=== PATIENT | female | born 1980 | race Caucasian/White ===

== ENCOUNTER 2023-01-23 10:04 | Outpatient (AMB) | payer OTHER, SELFPAY ==
--- NOTE | 2023-01-23 10:17 | A.OFFPC_ITS ---
Vital Signs 01/23/23 10:23 Height 5 ft 4 in Weight 408 lb 6 oz BMI 70.1 BMI Reason not done Patient refused/unable BP 120/78 Blood Pressure Location Rt brachial Position Sitting Pulse 100 Pulse Source Pulse Oximeter Pulse Oximetry (%) 95 Oxygen Delivery Method Room Air Intake Visit Reasons: F/u headaches/nausea Allergies egg Allergy (Unknown, Verified 01/23/23 10:18) Stomach Upset lactose Allergy (Unknown, Verified 01/23/23 10:18) nausea and vomiting Medication List - Last Reconciled 01/23/23 by Yara Peña MD bupropion HCl 150 mg PO DAILY trazodone 50 mg PO BEDTIME PRN Dental Screening Dental Screen Date: 01/23/23 Did you have a dental visit in the last 12 months?: No Did you have a dental problem in the last 6 months where you did not have access to dental care?: No Was dental information given to patient?: No HPI HPI Comments History of Present Illness Details pt presents for PE. She went to ER 1 month ago with c/o abd pain related to menses. Work up including CT abd/pelvic and labs were normal. Pt would like to see health evaluator. Pt f/u with psychiatrist and therapist for depression and anxiety [facility] Medical History (Updated 01/23/23 @ 21:15 by Yara Peña MD) Annual physical exam Surgical History No pertinent past surgical history Family History Father Unknown family medical history Stroke Myocardial infarction Mother No problems noted. Brother No problems noted. Brother No problems noted. Social History Housing: Apartment Patient Tobacco Use Status: Never used Tobacco e-Cigarette/Vaping Use: Never Used service: No Cognitive needs: No Hearing needs: No Vision needs: No Questionnaire PHQ-9 Over the last 2 weeks, how often have you been bothered by any of the following problems? 1. Little interest or pleasure in doing things: more than half the days 2. Feeling down, depressed, or hopeless: more than half the days 3. Trouble falling or staying asleep, or sleeping too much: not at all 4. Feeling tired or having little energy: nearly every day 5. Poor appetite or overeating: nearly every day 6. Feeling bad about yourself - or that you are a failure or have let yourself or your family down: more than half the days 7. Trouble concentrating on things, such as reading the newspaper or watching television: several days 8. Moving or speaking so slowly that other people could have noticed. Or the opposite - being so fidgety or restless that you have been moving around a lot more than usual: several days 9. Thoughts that you would be better off or of hurting yourself in some way: more than half the days Total score: 16 Depression Screening Interpretation: Positive 54853 - PHQ-9 Billing: Yes Source: Developed by Drs. Rasheed Sarabia, Stefani Gaona, Cleve [address] and colleagues, with an educational nahid from [employer]. Thrive Questionnaire Date Thrive assessed: 01/23/23 I am a: Patient What is your living situation today?: I have a steady place to live Within the past 12 months, did the food you bought not last and you didn't have the money to get more?: Often true Within the past 12 months, did you worry whether your food would run out before you got money to buy more?: Often true Do you have trouble paying for medicines?: No Do you have trouble getting transportation to medical appointments?: No Do you have trouble paying your heating and electricity bill?: No Do you have trouble taking care of your child, family member or friend?: No Do you have trouble with day-to-day activities such as bathing, preparing meals, shopping, managing finances, etc.?: No Are you currently unemployed and looking for a job?: No Are you interested in more education?: No Please select the resources that you would like help with: Transportation AUDIT C Alcohol Use Questionnaire (AUDIT-C) 1. How often do you have a drink containing alcohol?: Never 3. How often do you have six or more drinks on one occasion?: Never Total Score: 0 Score Reviewed/Action Taken: Yes LEONARDO-7 AMB Questionnaire LEONARDO-7 Date LEONARDO - 7 assessed: 01/23/23 Feeling nervous, anxious, or on edge: 2 = More than half the days Not being able to stop or control worryin = Several days Worrying too much about different things: 2 = More than half the days Trouble relaxin = More than half the days Being so restless that it is hard to sit still: 1 = Several days Becoming easily annoyed or irritable: 3 = Nearly every day Feeling afraid as if something awful might happen: 2 = More than half the days Total LEONARDO-7 score (0-4 normal; 5-9 mild; 10-14 moderate; 15-21 severe): 13 Source: Developed by Drs. Rasheed Sarabia, Stefani Gaona, [address]ve [address] and colleagues, with an educational nahdi from [employer]. LEONARDO-7 Assessment Billing LEONARDO-7 Assessment Tool: LEONARDO-7 Assessment 03160 Review of Systems Const All systems reviewed & are unremarkable except as noted in HPI and below Reports no additional complaints Eyes Reports no additional complaints ENT Reports no additional complaints Card Reports no additional complaints Resp Reports no additional complaints GI Reports no additional complaints Reports no additional complaints Physical exam (Primary Care) Vital Signs: Last Vital Signs Pulse 100 01/23/23 10:23 Pulse Ox 95 01/23/23 10:23 Oxygen Delivery Method Room Air 01/23/23 10:23 BMI result Body Mass Index 70.1 Tobacco/Smoking Status: Tobacco use Status Patient Tobacco Use Status Never used Tobacco 01/23/23 10:26 e-Cigarette/Vaping Use Never Used 01/23/23 10:26 PHQ-9: PHQ-9 Score PHQ-9: Total score 16 01/23/23 10:41 Depression Screening Interpretation: Positive Thrive Assessment: Date of Thrive Assessment Date Thrive assessed 01/23/23 01/23/23 10:41 Const General: no acute distress HENMT Head: Yes normal to inspection Ears: hearing grossly normal bilaterally Neck Neck: Yes no lymphadenopathy and Yes supple Resp Effort & Inspection: normal respiratory effort Auscultation: clear to auscultation bilaterally Cardio Rhythm: regular rhythm Heart sounds: S1 normal heart sound present and S2 normal heart sound present GI Inspection: Yes normal to inspection Palpation (GI): Soft to palpation Percussion: Yes normal to percussion Assessment and Plan Assessment & Plan (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 (5) Dysmenorrhea: Code(s): N94.6 - Dysmenorrhea, unspecified Plan: refer to health evaluator Orders: Orders Lipid Panel Today E66.01 - Morbid (severe) obesity due to excess calories, Z00.00 - Encounter for general adult medical examination without abnormal findings TSH reflex Free T4 Today E66.01 - Morbid (severe) obesity due to excess calories, Z00.00 - Encounter for general adult medical examination without abnormal findings Referrals PROFESSOR OF GENETICS Referral N94.6 - Dysmenorrhea, unspecified Coding Level of Care Code Est Pt Prev Care 40-64y(56584) Diagnoses Aerophobia F40.228 Anxiety F41.9 Morbid obesity E66.01 Annual physical exam Z00.00 Dysmenorrhea N94.6 Additional Codes LEONARDO-7 Assessment Billing - LEONARDO-7 Assessment Tool: LEONARDO-7 Assessment 85331 ([id number])
[2023-01-23 10:23] VITALS: BP 120/78; PULSE 100; O2SAT 95; BMI 70.1
== END 2023-01-23 13:42 | disposition home or self-care (01) ==
PROVIDERS: PCP Internal Medicine; Visit Provider Internal Medicine
DX: Z00.00 Encounter for general adult medical examination without abnormal findings (principal); E66.01 Morbid (severe) obesity due to excess calories; F41.9 Anxiety disorder, unspecified; Z68.45 Body mass index [BMI] 70 or greater, adult; F40.228 Other natural environment type phobia; N94.6 Dysmenorrhea, unspecified
CPT/HCPCS: 99396

== ENCOUNTER 2023-04-30 08:14 | Outpatient (REF) | payer OTHER, SELFPAY ==
[2023-04-30 11:21] LABS: MANUAL DIFF FLAG NO
[2023-04-30 11:30] LABS: Basophils Absolute Auto 0.1 X10*3/uL (0.0-0.2); Basophils Percent Auto 1.2 % (0-2); Eosinophils Absolute Auto 0.2 X10*3/uL (0.0-0.4); Eosinophils Percent Auto 2.2 % (0-4); Hematocrit 46.7 % (37.0-47.0); Hemoglobin 14.9 g/dl (12.0-16.0); Imm Gran Abs Auto 0.02 X10*3/uL (0.00-0.03); Imm Gran Pct Auto 0.3 % (0.0-0.4); Lymphocytes Absolute Auto 1.8 X10*3/uL (1.2-4.9); Lymphocytes Percent Auto 27.1 % (20-40); Mean Corpuscular HGB Conc 31.9 g/dl (31.0-35.0); Mean Corpuscular Hemoglobin 31.8 pg (27.0-33.0); Mean Corpuscular Volume 99.6 fL (80.0-98.0); Mean Platelet Volume 11.9 fL (9.4-12.3); Monocytes Absolute Auto 0.5 X10*3/uL (0.1-1.2); Monocytes Percent Auto 7.1 % (2-11); Neutrophils Absolute Auto 4.2 x10*3/uL (2.0-8.3); Neutrophils Percent Auto 62.1 % (45-73); Platelet Count 292 X10*3/uL (160-400); Red Blood Count 4.69 X10*6/uL (4.20-5.50); Red Cell Distribution Width 12.3 % (11.0-16.0); White Blood Count 6.8 X10*3/uL (4.8-10.8)
[2023-04-30 12:00] LABS: Alanine Aminotransferase 32 U/L (0-31); Albumin Level 4.2 g/dL (3.5-5.0); Alkaline Phosphatase 86 U/L (39-117); Anion Gap 14 (12-20); Aspartate Amino Transferase 28 U/L (5-31); Bilirubin Direct 0.4 mg/dL (0.0-0.5); Blood Urea Nitrogen 13 mg/dL (9-16); Calcium 9.8 mg/dL (8.4-10.2); Carbon Dioxide 29 mmol/L (22-29); Chloride 101 mmol/L (96-108); Estimated Glomerular Filt Rate 55; Glucose Random 109 mg/dL (60-115); Potassium 4.2 mmol/L (3.3-5.1); Sodium 140 mmol/L (135-145); Total Protein 8.4 g/dL (6.5-8.0)
[2023-04-30 12:03] LABS: Cholesterol 164 mg/dL (<200); HDL Cholesterol 53 mg/dL (>40); LDL Cholesterol Calculated 91 mg/dL (<100); TSH reflex Free T4 3.86 uIU/mL (0.32-4.0); Triglycerides 103 mg/dL (<150)
[2023-05-05 11:59] LABS: Vitamin D 25-OH, D2 <4 ng/mL; Vitamin D 25-OH, D3 25 ng/mL; Vitamin D 25-OH, Total 25 ng/mL (30-100)
== END 2023-04-30 08:15 | disposition home or self-care (01) ==
LOC: HO.HMGCLDS 08:14
PROVIDERS: Clinical Nurse Specialist Psychiatric/Mental Health, Adult; PCP Internal Medicine; Visit Provider Internal Medicine
DX: Z00.00 Encounter for general adult medical examination without abnormal findings (principal); E66.01 Morbid (severe) obesity due to excess calories; Z79.899 Other long term (current) drug therapy
CPT/HCPCS: 36415; 80053; 80061; 82248; 82306; 84443; 85025

== ENCOUNTER 2025-02-08 09:10 | Outpatient (REF) | payer OTHER, SELFPAY ==
[2025-02-08 13:04] LABS: MANUAL DIFF FLAG NO
[2025-02-08 13:30] LABS: Hematocrit 45.0 % (37.0-47.0); Hemoglobin 14.6 g/dl (12.0-16.0); Imm Gran Abs Auto 0.02 X10*3/uL (0.00-0.03); Imm Gran Pct Auto 0.3 % (0.0-0.4); Lymphocytes Absolute Auto 1.6 X10*3/uL (1.2-4.9); Mean Corpuscular HGB Conc 32.4 g/dl (31.0-35.0); Mean Corpuscular Hemoglobin 32.4 pg (27.0-33.0); Mean Corpuscular Volume 99.8 fL (80.0-98.0); NRBC Abs Auto 0.000 X10*3/uL (0.0-0.012); NRBC Pct Auto 0.0 /100WBC (0.0-0.2); Platelet Count 257 X10*3/uL (160-400); Red Blood Count 4.51 X10*6/uL (4.20-5.50); White Blood Count 6.2 X10*3/uL (4.8-10.8)
[2025-02-08 13:52] LABS: Alanine Aminotransferase 40 U/L (0-31); Albumin Level 4.3 g/dL (3.5-5.0); Alkaline Phosphatase 101 U/L (39-117); Anion Gap 13 (12-20); Aspartate Amino Transferase 38 U/L (5-31); Blood Urea Nitrogen 13 mg/dL (9-16); Calcium 9.2 mg/dL (8.4-10.2); Carbon Dioxide 29 mmol/L (22-29); Chloride 101 mmol/L (96-108); Estimated Glomerular Filt Rate 56; Potassium 3.9 mmol/L (3.3-5.1); Sodium 139 mmol/L (135-145); Total Protein 8.0 g/dL (6.5-8.0)
[2025-02-08 14:12] LABS: Thyroid Stimulating Hormone 2.91 uIU/mL (0.32-4.0)
== END 2025-02-08 09:11 | disposition home or self-care (01) ==
LOC: HO.HMGCLDS 09:10
PROVIDERS: PCP Internal Medicine; Visit Provider Clinical Nurse Specialist Psychiatric/Mental Health, Adult
DX: Z79.899 Other long term (current) drug therapy (principal)
CPT/HCPCS: 36415; 80053; 82248; 82306; 84443; 85025

== ENCOUNTER 2025-04-24 16:34 | Emergency (ER) | payer OTHER, SELFPAY ==
[2025-04-24 16:43] VITALS: BP 149/121; PULSE 77; RESP 26; TEMP 36.7; O2SAT 95; BMI 76.1
--- NOTE | 2025-04-24 16:49 | ED.GENADULT ---
HPI - General Adult General Chief complaint: Anxiety Stated complaint: light headed, severe anxiety Time Seen by Provider: 04/24/25 16:49 History of Present Illness ED Provider: Daniel LICEA narrative: The patient is a 45-year-old woman with a history of severe agoraphobia who comes to the hospital by ambulance because she has been feeling lightheaded and anxious ever since events during the previous week. She lives in an apartment with her . She has not left the apartment in 2 years. Apparently some plumbing maintenance needed to be done this week and therefore the patient could not use her own bathroom for a few days during the middle of the week. There was a bathroom available in the neighboring building for the patient to use but because of her agoraphobia she did not feel she will be able to use it. She therefore ate and drank little or nothing for a couple of days to avoid having significant urine and stool output. She used a bucket during this time. The bathroom situation has now been fixed but the patient has a felt very lightheaded ever since she stopped eating and drinking. She has been able to take some liquids but has not been taking much in the way of solid foods. She has been having some nausea but she thinks that mostly she just is feeling a lack of appetite because of the profound degree of anxiety she experienced as a result of the events of the week. The patient has a primary care doctor but has not seen her primary care doctor in a couple of years. The patient has been receiving psychiatric medications through and but she has recently been weaning herself off all of her psychiatric medications and hopes to avoid going back on any psychiatric medications. I offered the patient has some lorazepam but she said that she has a history of addiction does not wish to take anything that is addictive. Related Data Home Medications ?Medication ?Instructions ?Recorded ?Confirmed trazodone 50 mg tablet 50 mg PO BEDTIME PRN 01/23/23 01/23/23 Previous Rx's ?Medication ?Instructions ?Recorded meclizine 25 mg tablet 25 mg PO BID PRN dizziness 5 days 04/24/25 #10 tabs Allergies Allergy/AdvReac Type Severity Reaction Status Date / Time egg Allergy Unknown Stomach Verified 01/23/23 10:18 Upset lactose Allergy Unknown nausea and Verified 01/23/23 10:18 vomiting hydroxyzine AdvReac Agitated Verified 04/24/25 16:44 Review of Systems Review of Systems: Yes all other systems are reviewed and are negative [facility] [place] Past Medical History Medical History Annual physical exam Surgical History No pertinent past surgical history Family History Family History Father Unknown family medical history Stroke Myocardial infarction Mother No problems noted. Brother No problems noted. Brother No problems noted. Social History Social History Housing: Apartment Patient Tobacco Use Status: Never used Tobacco e-Cigarette/Vaping Use: Never Used Advance Directives: No Advance Directives Information Provided: Yes Do you have a plan to hurt others: No Plan Patient : No service: No Cognitive needs: No Hearing needs: No Vision needs: No Physical Exam ED Vital Signs: Vital Signs - 24 hr 04/24/25 16:43 04/24/25 20:03 04/24/25 20:54 Temperature 98.0 F 97.6 F 97.6 F Pulse Rate 77 62 62 Respiratory Rate 26 H 18 Blood Pressure 149/121 H 118/61 118/61 Pulse Oximetry 95 95 95 Oxygen Delivery Method Room Air Room Air Room Air BMI result Body Mass Index 76.1 Const Other: The patient is a 45-year-old woman. She has a BMI of 76. She is awake and alert. She has an anxious demeanor. She does not seem in distress. HENCO Other: The face is symmetrical. ?Mucous membranes moist. the patient was complaining of some right ear pain which really seemed to be mostly pain below the right ear. The left ear, ear canal, and tympanic membrane or entirely normal. On the right side the external ear appeared normal. The ear canal had some cerumen a partially occluded the view of the right tympanic membrane but I felt I saw enough of the right tympanic membrane to feel that there was no sign of acute pathology. The eardrum did not appear red or distended. There was no right ear canal edema or drainage. Eyes Other: Pupils are round equal, conjunctivae are clear, extraocular movements intact Neck Other: The patient has a thick neck. She moves it easily. The patient has mildly palpable jugulodigastric lymph nodes bilaterally. I did not feel there was any significant right-sided abnormality compared to the left. Resp Effort & Inspection: normal respiratory effort Auscultation: clear to auscultation bilaterally Cardio Rate: regular rate Rhythm: regular rhythm Heart sounds: S1 normal heart sound present and S2 normal heart sound present GI Other: The patient has a large abdomen. It seems soft and nontender. Skin Other: The skin is dry and unremarkable Neuro Other: The patient is awake and alert with a normal mental status although she seems quite anxious. Face is symmetrical. Eye movements are normal. Speech is clear. She moves her extremities symmetrically. No obvious focal findings. Extrem Other: The patient has a large calves but there was no ankle edema. No asymmetry. No tenderness. Medications Administered Discontinued Medications Generic Name Dose Route Start Last Admin Trade Name Gastonq PRN Reason Stop Dose Admin Acetaminophen 975 mg 04/24/25 20:33 04/24/25 20:42 Acetaminophen 325 Mg Tablet PO 04/24/25 20:34 975 mg ONCE ONE Administration Ibuprofen 400 mg 04/24/25 20:33 04/24/25 20:42 Ibuprofen 400 Mg Tablet PO 04/24/25 20:34 400 mg ONCE ONE Administration Medical Decision Making Medical Decision Making [facility] Narrative: The patient is a 45-year-old woman who is morbidly obese and who has very debilitating agoraphobia. Because of her agoraphobia she has not seen her regular doctor in years. She has [facility] She tells me that she has recently been weaning herself off her psychiatric medications. She seems to have a planned to be off all psychiatric medications soon. She says that she does not plan on following up with her [facility] prescriber. The patient lives with her . The patient is in the emergency room today because she says that she has been feeling lightheaded. She describes feeling as though she had a very difficult few days last week because of maintenance that was being done to her apartment, particularly her bathroom. She did not have use of her regular bathroom for a couple of days a few days ago and so she ate and drank very little to minimize her knee to use the bathroom. She found this experience traumatizing she says. It has left her feeling very lightheaded. She says that she was feeling close to calling 911 for the last couple of days and finally worked up the nerve to do it today and so arrived here by ambulance. She does not appear obviously acutely ill. she has been able the tolerate some fluids by mouth she says at home. the patient was offered anti nausea medication but she did not want to take any medication. She complained of feeling very anxious but does not wish to take any lorazepam because she says she has a history of addiction and does not want to take anything addicting. An IV was placed by nursing that she was anxious about receiving IV fluids. An EKG was done and labs were tested which are unremarkable aside from some mild transaminitis which might reflect some degree of hepatic steatosis but which I doubt is very clinically significant today. Overall I did my best to reassure the patient that she seemed reasonably well and that she might feel much better if she were back in her own apartment. She is not suicidal and I do not think there is an indication for a care team consult.She was advised to try to reconnect with her primary care doctor, possibly by telehealth visit. The patient clearly has very disabling agoraphobia which will make ongoing care difficult but she looks well now and I think she may return to her apartment. Lab Data 04/24/25 18:17 04/24/25 18:54 Labs: Lab Results 04/24/25 04/24/25 Range/Units 18:17 18:54 WBC 8.3 (4.8-10.8) X10*3/uL RBC 4.66 (4.20-5.50) X10*6/uL Hgb 14.8 (12.0-16.0) g/dl Hct 44.7 (37.0-47.0) % MCV 95.9 (80.0-98.0) fL MCH 31.8 (27.0-33.0) pg MCHC 33.1 (31.0-35.0) g/dl RDW 12.2 (11.0-16.0) % Plt Count 269 (160-400) X10*3/uL MPV 11.4 (9.4-12.3) fL Immature Gran % (Auto) 0.6 H (0.0-0.4) % Neut % (Auto) 55.6 (45-73) % Lymph % (Auto) 33.0 (20-40) % [place] % (Auto) 7.9 (2-11) % Eos % (Auto) 2.1 (0-4) % Baso % (Auto) 0.8 (0-2) % Lymph # (Auto) 2.7 (1.2-4.9) X10*3/uL [place] # (Auto) 0.7 (0.1-1.2) X10*3/uL Eos # (Auto) 0.2 (0.0-0.4) X10*3/uL Baso # (Auto) 0.1 (0.0-0.2) X10*3/uL Abs Immat Gran (auto) 0.05 H (0.00-0.03) X10*3/uL Absolute Neuts (auto) 4.6 (2.0-8.3) x10*3/uL Absolute Nucleated RBC 0.000 (0.0-0.012) X10*3/uL Nucleated RBC % (auto) 0.0 (0.0-0.2) /100WBC Sodium 140 (135-145) mmol/L Potassium 3.7 (3.3-5.1) mmol/L Chloride 104 (96-108) mmol/L Carbon Dioxide 28 (22-29) mmol/L Anion Gap 12 (12-20) BUN 10 (9-16) mg/dL Creatinine 0.80 (0.5-1.4) mg/dL Estim Creat Clear Calc 151.0 Estimated GFR > 60 Random Glucose 105 (60-115) mg/dL Calcium 8.9 (8.4-10.2) mg/dL Total Bilirubin 1.2 H (0.0-1.0) mg/dL Direct Bilirubin 0.4 (0.0-0.5) mg/dL AST 54 H (5-31) U/L ALT 50 H (0-31) U/L Alkaline Phosphatase 87 (39-117) U/L Total Protein 7.3 (6.5-8.0) g/dL Albumin 3.9 (3.5-5.0) g/dL Beta HCG, Quant < 2 mIU/mL Urine Color Yellow Urine Appearance Clear Urine pH 7.0 (5.0-9.0) Ur Specific [place] 1.010 (1.005-1.025) Urine Protein Negative (Neg-Trace) mg/dL Urine Glucose (UA) Negative (Negative) mg/dL Urine Ketones Negative (Negative) mg/dL Urine Blood Negative (Negative) Urine Nitrite Negative (Negative) Ur Leukocyte Esterase Negative (Negative) Independent Interpretation I performed an independent interpretation of an: EKG Interpretation: EKG at 17:32 shows what I think is normal sinus rhythm at 71 beats per minute. There is baseline artifact which I think is related to the patient's restlessness and anxiety. No definite acute ischemic changes or other acute findings. Discharge Plan Discharge Clinical Impression: Lightheadedness Patient Disposition: Home, Self-Care Additional Instructions: I think your testing today is reassuring. Please do your best to try to resume your regular diet. Rest and take it easy as much as you can over the next several days. My hope is that once you get back to your regular routine your symptoms will improve. I would recommend trying to follow up with the your regular doctor. Perhaps you could arrange a telehealth visit. Return to the emergency room if you feel significantly worse. Prescriptions: No Action meclizine 25 mg tablet 25 mg PO BID PRN (Reason: dizziness) 5 Days Qty: 10 0RF trazodone 50 mg tablet 50 mg PO BEDTIME PRN Referrals: Yara Peña MD [Primary Care Provider, Internal Medicine] Interventions: ED Discharge Assessment Last Done: 04/24/25 20:54 Discharge Date/Time: 04/24/25 20:55 Print Language: Irish
[2025-04-24 16:59] VITALS: BP 130/80; PULSE 88; O2SAT 98
--- NOTE | 2025-04-24 17:09 | ECG_ITS ---
Test Reason : LIGHT HEADNESS Blood Pressure : */* mmHG Vent. Rate : 71 BPM Atrial Rate : 69 BPM P-R Int : 170 ms QRS Dur : 84 ms QT Int : 410 ms P-R-T Axes : 79 7 15 degrees QTcB Int : 445 ms Undetermined rhythm Cannot rule out Anterior infarct , age undetermined Abnormal ECG No previous ECGs available Referred By: Víctor Sanchez Electronically Signed By: Memo Pathak
[2025-04-24 18:24] LABS: MANUAL DIFF FLAG NO
[2025-04-24 18:27] LABS: Appearance Urine Clear; Glucose Urine UA Negative (Negative); PH 7.0 (5.0-9.0); Specific Gravity - Urine 1.010 (1.005-1.025)
[2025-04-24 18:39] LABS: Hematocrit 44.7 % (37.0-47.0); Hemoglobin 14.8 g/dl (12.0-16.0); Imm Gran Abs Auto 0.05 X10*3/uL (0.00-0.03); Imm Gran Pct Auto 0.6 % (0.0-0.4); Lymphocytes Absolute Auto 2.7 X10*3/uL (1.2-4.9); Mean Corpuscular HGB Conc 33.1 g/dl (31.0-35.0); Mean Corpuscular Hemoglobin 31.8 pg (27.0-33.0); Mean Corpuscular Volume 95.9 fL (80.0-98.0); NRBC Abs Auto 0.000 X10*3/uL (0.0-0.012); NRBC Pct Auto 0.0 /100WBC (0.0-0.2); Platelet Count 269 X10*3/uL (160-400); Red Blood Count 4.66 X10*6/uL (4.20-5.50); White Blood Count 8.3 X10*3/uL (4.8-10.8)
[2025-04-24 19:36] LABS: Alanine Aminotransferase 50 U/L (0-31); Albumin Level 3.9 g/dL (3.5-5.0); Alkaline Phosphatase 87 U/L (39-117); Anion Gap 12 (12-20); Aspartate Amino Transferase 54 U/L (5-31); Blood Urea Nitrogen 10 mg/dL (9-16); Calcium 8.9 mg/dL (8.4-10.2); Carbon Dioxide 28 mmol/L (22-29); Chloride 104 mmol/L (96-108); Creatinine Clr Calc Pharmacy 151.0; Estimated Glomerular Filt Rate > 60; Potassium 3.7 mmol/L (3.3-5.1); Sodium 140 mmol/L (135-145); Total Protein 7.3 g/dL (6.5-8.0)
[2025-04-24 20:03] VITALS: BP 118/61; PULSE 62; TEMP 36.4; O2SAT 95
[2025-04-24 20:54] VITALS: BP 118/61; PULSE 62; RESP 18; TEMP 36.4; O2SAT 95
== END 2025-04-24 20:55 | disposition home or self-care (01) ==
PROVIDERS: Emergency Provider Emergency Medicine; PCP Internal Medicine
DX: R42 Dizziness and giddiness (principal); F41.9 Anxiety disorder, unspecified; F40.00 Agoraphobia, unspecified; H92.01 Otalgia, right ear; R94.31 Abnormal electrocardiogram [ECG] [EKG]; R11.0 Nausea; Z79.899 Other long term (current) drug therapy
CPT/HCPCS: 36415; 80053; 80076; 81003; 82248; 84702; 85025; 93005; 99283; 99285

== ENCOUNTER → 2025-04-24 17:09 | Outpatient (BNV) | payer OTHER, SELFPAY | PROVIDERS: Emergency Provider Emergency Medicine; PCP Internal Medicine; Visit Provider Internal Medicine Cardiovascular Disease | DX: R94.31 Abnormal electrocardiogram [ECG] [EKG] (principal); R42 Dizziness and giddiness | CPT/HCPCS: 93010 ==

== ENCOUNTER 2025-04-26 18:18 | Inpatient (IN) | payer OTHER, SELFPAY ==
[2025-04-26 18:26] VITALS: PULSE 78; O2SAT 98
[2025-04-26 18:39] VITALS: BP 130/52; PULSE 78; RESP 26; TEMP 36.7; O2SAT 97; BMI 74.2
[2025-04-26 19:43] LABS: MANUAL DIFF FLAG NO
[2025-04-26 19:44] LABS: Hematocrit 41.4 % (37.0-47.0); Hemoglobin 13.9 g/dl (12.0-16.0); Imm Gran Abs Auto 0.02 X10*3/uL (0.00-0.03); Imm Gran Pct Auto 0.2 % (0.0-0.4); Lymphocytes Absolute Auto 2.8 X10*3/uL (1.2-4.9); Mean Corpuscular HGB Conc 33.6 g/dl (31.0-35.0); Mean Corpuscular Hemoglobin 32.3 pg (27.0-33.0); Mean Corpuscular Volume 96.3 fL (80.0-98.0); NRBC Abs Auto 0.000 X10*3/uL (0.0-0.012); NRBC Pct Auto 0.0 /100WBC (0.0-0.2); Platelet Count 259 X10*3/uL (160-400); Red Blood Count 4.30 X10*6/uL (4.20-5.50); White Blood Count 9.2 X10*3/uL (4.8-10.8)
[2025-04-26 19:58] LABS: Alanine Aminotransferase 42 U/L (0-31); Albumin Level 3.8 g/dL (3.5-5.0); Alkaline Phosphatase 81 U/L (39-117); Anion Gap 10 (12-20); Aspartate Amino Transferase 40 U/L (5-31); Blood Urea Nitrogen 17 mg/dL (9-16); Calcium 9.2 mg/dL (8.4-10.2); Carbon Dioxide 28 mmol/L (22-29); Chloride 105 mmol/L (96-108); Creatinine Clr Calc Pharmacy 156.2; Estimated Glomerular Filt Rate > 60; Potassium 3.9 mmol/L (3.3-5.1); Sodium 139 mmol/L (135-145); Total Protein 7.2 g/dL (6.5-8.0)
[2025-04-26 20:23] VITALS: BP 129/74; PULSE 70; RESP 14; TEMP 36.6; O2SAT 96
--- NOTE | 2025-04-26 20:35 | ED.GENADULT ---
HPI - General Adult General Chief complaint: Psychiatric Symptoms Stated complaint: psych issue, agoraphobia Time Seen by Provider: 04/26/25 19:06 Source: patient, family (), RN notes reviewed and old records reviewed Mode of arrival: EMS Limitations: no limitations History of Present Illness ED Provider: Rafiq LICEA narrative: 45-year-old female past medical history significant for morbid obesity, agoraphobia, anxiety presents for evaluation of ?I need help. ? The patient reports that she is seeking help for her severe anxiety and agoraphobia. She was seen here a couple of days ago for lightheadedness She had a medical workup and was ultimately discharged home She is seeking inpatient psychiatric care for her agoraphobia and anxiety. However she does not want to be on medications. She has previously been on buspirone and has been titrating herself off. She feels has a medications have not helped her symptoms adequately in the past She reports the other than her visit a couple of days ago, she has not left her apartment since January and prior to that it was a couple years ago She states ?I can not live like this anymore. ? Related Data Home Medications ?Medication ?Instructions ?Recorded ?Confirmed trazodone 50 mg tablet 50 mg PO BEDTIME PRN Sleep 01/23/23 04/26/25 cholecalciferol (vitamin D3) 25 25 mcg PO DAILY 04/26/25 04/26/25 mcg (1,000 unit) capsule (Vitamin D3) Previous Rx's ?Medication ?Instructions ?Recorded meclizine 25 mg tablet 25 mg PO BID PRN dizziness 5 days 04/24/25 #10 tabs Allergies Allergy/AdvReac Type Severity Reaction Status Date / Time egg AdvReac Unknown Stomach Verified 04/26/25 18:44 Upset lactose AdvReac Unknown nausea and Verified 04/26/25 18:44 vomiting hydroxyzine AdvReac Agitated Verified 04/24/25 16:44 Review of Systems Constitutional: Constitutional: Denies body ache(s), Denies chills, Denies fever(s) and Reports headache(s) Eyes: Eyes: Denies blurry vision, Denies irritation and Denies itchy eyes ENT: Denies dizziness, Denies dry mouth and Reports headache(s) Cardiovascular: Cardiovascular: Denies chest pain and Denies dyspnea on exertion Respiratory: Respiratory: Denies cough and Denies dyspnea on exertion Gastrointestinal: Gastrointestinal: Denies abdominal pain, Denies nausea and Denies vomiting Musculoskeletal: Musculoskeletal: Denies back pain Integumentary/Breasts: Skin/Breast: Denies rash Neurologic: Denies dizziness and Reports headache(s) Psychiatric: Psychiatric: Reports anxiety, Reports hopelessness, Reports anhedonia and Reports paranoia Allergic/Immunologic: Allergic/Immunologic: Denies itchy eyes PMFSH Past Medical History Medical History Annual physical exam Surgical History No pertinent past surgical history Family History Family History Father Unknown family medical history Stroke Myocardial infarction Mother No problems noted. Brother No problems noted. Brother No problems noted. Social History Social History Housing: Apartment Alcohol intake: former Patient Tobacco Use Status: Never used Tobacco Smoked in Last 30 Days: No e-Cigarette/Vaping Use: Never Used Use of substances other than those prescribed or required for medical reasons: Yes Substance Use Type: Marijuana Substance Use Frequency: Occasionally Last Used Substance: Weeks (ago) Any prior treatment program specific to substance use: No Advance Directives: No Advance Directives Information Provided: No Do you have a plan to hurt others: No Plan service: No Cognitive needs: No Hearing needs: No Vision needs: No Physical Exam ED Vital Signs: Vital Signs - 24 hr 04/26/25 18:39 04/26/25 20:23 04/27/25 06:05 Temperature 98.1 F 98 F 97.5 F Pulse Rate 78 70 84 Respiratory Rate 26 H 14 16 Blood Pressure 130/52 L 129/74 141/97 H Pulse Oximetry 97 96 96 Oxygen Delivery Method Room Air Room Air Room Air BMI result Body Mass Index 74.2 Const General: healthy appearing, comfortable, no acute distress, alert and awake Nutritional Appearance: well nourished and obese morbidly obese Orientation/consciousness: patient oriented x3 HENMT Head: Yes normocephalic and Yes atraumatic Eyes Eyelids: Yes eyelids normal Conjunctivae: conjunctivae normal Sclerae: sclerae normal Corneas: corneas normal Pupils: Equal, round and reactive pupils present EOM: EOMs intact bilaterally Neck Neck: Yes full ROM Resp Effort & Inspection: normal respiratory effort, able to speak in complete sentences, no audible wheezes and not labored Auscultation: clear to auscultation bilaterally Cardio Rate: regular rate Rhythm: regular rhythm GI Inspection: No distended Palpation (GI): Soft to palpation, not firm, nontender, no guarding and not rigid Skin General skin exam: elasticity normal Neuro General: patient oriented x3 Cranial nerves: Yes CN's II-XII intact bilaterally, Yes Equal, round and reactive pupils present and Yes Bilaterally intact EOM present Cognition (Neuro): normal cognition Extrem Other: Moving all extremities well without any obvious deformities Course Reevaluation(s) Reevaluation #1: Patient is seen with the care team and will be a bed search for inpatient psychiatric care. She was placed on a section 12 Time: 00:23 Reevaluation #2: Time: 11:10 Date: 04/27/25 Provider: Bart Barnes, DO Patient in physician observation for psychiatric evaluation.? No acute events reported overnight. No current complaints. VS stable.? Patient is in bed search status. Will continue to monitor. Medications Administered Generic Name Dose Route Start Last Admin Trade Name Freq PRN Reason Stop Dose Admin Vitamin D 25 mcg 04/27/25 09:00 04/27/25 08:20 Cholecalciferol (Vitamin D3) 25 Mcg Tablet PO 25 mcg DAILY MAGALI Administration Discontinued Medications Generic Name Dose Route Start Last Admin Trade Name Freq PRN Reason Stop Dose Admin Acetaminophen 650 mg 04/26/25 20:16 04/26/25 20:51 Acetaminophen 325 Mg Tablet PO 04/26/25 20:17 650 mg ONCE ONE Administration Ibuprofen 600 mg 04/26/25 20:16 04/26/25 20:50 Ibuprofen 600 Mg Tablet PO 04/26/25 20:17 600 mg ONCE ONE Administration Trazodone HCl 50 mg 04/26/25 22:39 04/27/25 00:22 Trazodone Hcl 50 Mg Tablet PO 04/26/25 22:40 50 mg ONCE ONE Administration Medical Decision Making Medical Decision Making MDM Narrative: 45-year-old female with past medical history significant for severe anxiety, morbid obesity presents for evaluation of psychiatric care. She is seeking inpatient level of care for management of her anxiety and agoraphobia. I reviewed her medical workup from 2 days ago. She had repeat labs today that did not show any significant changes. A tox screen is pending. The patient will be referred to the care team for disposition she is medically cleared for care team consult Differential Diagnosis Differential Diagnoses: The differential diagnosis associated with the presentation includes Anxiety Agoraphobia Substance abuse Depression Lab Data MDM Lab Attestation statement: I reviewed the patient's lab results. No leukocytosis or anemia. Normal platelet count. No electrolyte abnormalities warranting dimension 04/26/25 19:38 04/26/25 19:38 Labs: Lab Results 04/26/25 04/26/25 Range/Units 19:38 20:37 WBC 9.2 (4.8-10.8) X10*3/uL RBC 4.30 (4.20-5.50) X10*6/uL Hgb 13.9 (12.0-16.0) g/dl Hct 41.4 (37.0-47.0) % MCV 96.3 (80.0-98.0) fL MCH 32.3 (27.0-33.0) pg MCHC 33.6 (31.0-35.0) g/dl RDW 12.3 (11.0-16.0) % Plt Count 259 (160-400) X10*3/uL MPV 10.8 (9.4-12.3) fL Immature Gran % (Auto) 0.2 (0.0-0.4) % Neut % (Auto) 57.8 (45-73) % Lymph % (Auto) 30.4 (20-40) % Campbell % (Auto) 8.6 (2-11) % Eos % (Auto) 2.1 (0-4) % Baso % (Auto) 0.9 (0-2) % Lymph # (Auto) 2.8 (1.2-4.9) X10*3/uL Campbell # (Auto) 0.8 (0.1-1.2) X10*3/uL Eos # (Auto) 0.2 (0.0-0.4) X10*3/uL Baso # (Auto) 0.1 (0.0-0.2) X10*3/uL Abs Immat Gran (auto) 0.02 (0.00-0.03) X10*3/uL Absolute Neuts (auto) 5.3 (2.0-8.3) x10*3/uL Absolute Nucleated RBC 0.000 (0.0-0.012) X10*3/uL Nucleated RBC % (auto) 0.0 (0.0-0.2) /100WBC Sodium 139 (135-145) mmol/L Potassium 3.9 (3.3-5.1) mmol/L Chloride 105 (96-108) mmol/L Carbon Dioxide 28 (22-29) mmol/L Anion Gap 10 L (12-20) BUN 17 H (9-16) mg/dL Creatinine 0.76 (0.5-1.4) mg/dL Estim Creat Clear Calc 156.2 Estimated GFR > 60 Random Glucose 100 (60-115) mg/dL Calcium 9.2 (8.4-10.2) mg/dL Total Bilirubin 1.0 (0.0-1.0) mg/dL AST 40 H (5-31) U/L ALT 42 H (0-31) U/L Alkaline Phosphatase 81 (39-117) U/L Total Protein 7.2 (6.5-8.0) g/dL Albumin 3.8 (3.5-5.0) g/dL TSH 2.41 (0.32-4.0) uIU/mL Urine Color Yellow Urine Appearance Clear Urine pH 6.0 (5.0-9.0) Ur Specific [place] 1.020 (1.005-1.025) Urine Protein Negative (Neg-Trace) mg/dL Urine Glucose (UA) Negative (Negative) mg/dL Urine Ketones Negative (Negative) mg/dL Urine Blood Small (1+) H (Negative) Urine Nitrite Negative (Negative) Ur Leukocyte Esterase Negative (Negative) Urine RBC 0-2 (0-2) /HPF Urine WBC 0-5 (0-5) /HPF Ur Squamous Epith Cells 6-10 (0-2) /HPF Urine Bacteria Trace (None Seen) Hyaline Casts 0-2 (0-2) /LPF Urine Opiates Screen Not Detected (Not Detect) Ur Buprenorphine Scrn Not Detected (Not Detect) ng/mL Ur Oxycodone Screen Not Detected (Not Detect) ng/mL Urine Methadone Screen Not Detected (Not Detect) ng/mL Urine Fentanyl Screen Not Detected (Not Detect) Ur Barbiturates Screen Not Detected (Not Detect) Ur Phencyclidine Scrn Not Detected (Not Detect) Ur Amphetamines Screen Not Detected (Not Detect) U Benzodiazepines Scrn Not Detected (Not Detect) Urine Cocaine Screen Not Detected (Not Detect) U Marijuana (THC) Screen Not Detected (Not Detect) Ethyl Alcohol < 10 mg/dL Discharge Plan Discharge Clinical Impression: Acute anxiety, Agoraphobia Prescriptions: No Action meclizine 25 mg tablet 25 mg PO BID PRN (Reason: dizziness) 5 Days Qty: 10 0RF cholecalciferol (vitamin D3) [Vitamin D3] 25 mcg (1,000 unit) capsule 25 mcg PO DAILY trazodone 50 mg tablet 50 mg PO BEDTIME PRN (Reason: Sleep) Referrals: Yara Peña MD [Primary Care Provider, Internal Medicine] Interventions: [place]-Suicide Risk Severity Scale Last Done: 04/26/25 20:23 Print Language: Citizen [place]
[2025-04-26 20:49] LABS: Appearance Urine Clear; Glucose Urine UA Negative (Negative); PH 6.0 (5.0-9.0); Specific Gravity - Urine 1.020 (1.005-1.025); UMIC TRIGGER UACC YES
[2025-04-26 20:59] LABS: Cannabinoid Screen Urine Not Detected (Not Detect)
--- OUTSIDE RECORDS SUMMARY | 2025-04-26 21:08 | XMS_ITS | Encounter Summary ---
Author Organization [facility] Address [address] [place] [address] Care Team Providers Care Electric Stove Mechanic Name Role Phone Marisel Mayes MD Primary Care Provider Unavailable Kayleigh Bueno [facility] Primary Care Provider U [email or web address] Reason for Visit * Reason Onset Date Comments er follow up 08/07/2017 [facility] Initial Visit 08/07/2017 Encounter Details Date Type Department Care Team Description 08/07/2017 Telephone Adult Medicine - [address] [address] Marisel Mayes MD er follow up ([facility]); Initial Visit Social History Tobacco Use Types Packs/Day Years Used Date Smoking Tobacco: Never Assessed Sex Assigned at Date Recorded Not on file documented as of this encounter Miscellaneous Notes * Telephone Encounter - Jude Muñoz - 08/07/2017 2:12 PM EST Appt scheduled with [facility] 08/13 - please obtain notes * Telephone Encounter - Aida Medrano R.N. - 08/07/2017 10:08 AM EST New patient to [facility]. Please schedule an ER follow up appointment. Thank you. * Telephone Encounter - Precious Chauhan - 08/07/2017 9:53 AM EST EMERGENCY DEPARTMENT FOLLOW-UP CONTACT: Did they go to the ER? : Yes Which ER did they go to? : [facility] Was the patient admitted? : No. How is the patient feeling? : getting better Disposition? : Comments: went to er hernia and cellulitis documented in this encounter Plan of Treatment Not on file documented as of this encounter Visit Diagnoses Not on filedocumented in this encounter Care Teams Electric Stove Mechanic Relationship Specialty Start Date End Date [place]-Marisel Huffman MD PCP - General Internal Medicine 08/07/17 Kayleigh Bueno FNP- PCP - General Internal Medicine 04/08/19 documented as of this encounter
--- OUTSIDE RECORDS SUMMARY | 2025-04-26 21:08 | XMS_ITS | Encounter Summary ---
Author Organization [facility] Address [address] [place] [address] Care Team Providers Care Last Ironer Name Role Phone Marisel Mayes MD Primary Care Provider Unavailable Kayleigh Bueno Primary Care Provider U kimberly Encounter Details Date Type Department Care Team Description 08/26/2017 Telephone Adult Medicine - [address] [address] Marisel Mayes MD Social History Tobacco Use Types Packs/Day Years Used Date Smoking Tobacco: Former Cigarettes Comments:aprox a month a go; previous pack per day smoker, decreased to point of quitting with Wellbutrin Alcohol Use Standard Drinks/Week Comments No 0 (1 standard drink = 0.6 oz pur e alcohol) sober x8 yrs Sex Assigned at Date Recorded Not on file documented as of this encounter Miscellaneous Notes * Telephone Encounter - Jude Muñoz - 08/26/2017 1:52 PM EST PT needed to cancel appointment tomorrow for 2 wk f/u with [place] - PT states she wouldn't be ableto come in until next month due to financial reasons. PT wondering if its necessary to come back that far from when was requested documented in this encounter Plan of Treatment Not on file documented as of this encounter Visit Diagnoses Not on filedocumented in this encounter Care Teams Last Ironer Relationship Specialty Start Date End Date Marisel Mayes MD PCP - General Internal Medicine 08/07/17 Kayleigh Bueno FNP-BC PCP - General Internal Medicine 04/08/19 documented as of this encounter
--- OUTSIDE RECORDS SUMMARY | 2025-04-26 21:08 | XMS_ITS | Encounter Summary ---
Author Organization [facility] Address [address] [place] [address] Care Team Providers Care Braider Setter Name Role Phone Marisel Mayes MD Primary Care Provider Unavailable Kayleigh BuenoMARTIN Primary Care Provider U kimberly Encounter Details Date Type Department Care Team Description 08/21/2017 Transfer Records Medical Records [address] [place] [id number] [place] [address] Social History Tobacco Use Types Packs/Day Years Used Date Smoking Tobacco: Former Cigarettes Comments:aprox a month a go; previous pack per day smoker, decreased to point of quitting with Wellbutrin Alcohol Use Standard Drinks/Week Comments No 0 (1 standard drink = 0.6 oz pur e alcohol) sober x8 yrs Sex Assigned at Date Recorded Not on file documented as of this encounter Plan of Treatment Not on file documented as of this encounter Visit Diagnoses Not on filedocumented in this encounter Care Teams Braider Setter Relationship Specialty Start Date End Date Marisel Mayes MD PCP - General Internal Medicine 08/07/17 Kayleigh Bueno FNP-BC PCP - General Internal Medicine 04/08/19 documented as of this encounter
--- NOTE | 2025-04-26 21:49 | PC.NURSE ---
Assumed care at 1900 pt found laying comfortably in bed reported her only complaint to 5/10 headache x3 days. PT reported agoraphobia caused her to feel extremely nervous/anxious. pt ambulated to bathroom and reported dizziness OBDULIO richards. Awaiting careteam. VSS
--- NOTE | 2025-04-26 23:03 | PC.NURSE ---
med rec completed with pt at bedside at this time, pt reports it is too early to take trazadone dose at this time
--- NOTE | 2025-04-27 00:53 | PC.NURSE ---
per Ceasar MAK, pt on sec 12 at this time, pt changed into hospital attire and belongings placed into curt port. OBDULIO Bravo states pt may keep july bear, olinda bottle and book at bedside at this time. pt aware when she goes to floor she may not keep items and pt verbalizes understanding at this time
[2025-04-27 06:05] VITALS: BP 141/97; PULSE 84; RESP 16; TEMP 36.4; O2SAT 96
--- NOTE | 2025-04-27 09:34 | PC.NURSE ---
oob ambulating to bathroom, spoke with on phone, ate well for breakfast.
--- NOTE | 2025-04-27 12:50 | PHA.MEDREC ---
Addendum entered by Rudolph García PharmD 04/27/25 12:55: reviewed Original Note: Pharmacy Consult ? Medication Reconciliation Pharmacy reviewed med rec done by nursing. Spoke with pt and she confirmed she has not started the Meclizine 25mg tab yet but has them at home; nurse confirmed that on med rec and I updates and took that off, pt confirmed the rest of the med list is correct.
[2025-04-27 16:00] VITALS: BP 133/74; PULSE 82; RESP 20; TEMP 36.9; O2SAT 93
[2025-04-27 19:22] VITALS: BP 133/90; PULSE 82; RESP 16; TEMP 36.8; O2SAT 93
--- NOTE | 2025-04-28 00:32 | PC.NURSE ---
pt stated she was in pain all over d/t the bed. offered her a hospital bed and tylenol. pt verbalizes comfortable with hospital bed and will hold off on tylenol for now.
[2025-04-28 01:15] VITALS: PULSE 71; RESP 20; O2SAT 96
[2025-04-28] MEDS: OLANZapine ODT 10 MG TAB.RAPDIS TRANSLINGU (01:17)
--- NOTE | 2025-04-28 03:05 | PC.NURSE ---
late entry some time between previous note and 011 pt rang call corado reporting feeling sob. pt visibly anxious and repeating i can't do this, i have to get out of here, i need to go home. sats 96% on RA. HR 71. [facility] MAK made aware of this. patient had been refusing medications previously including po Ativan. this RN able to verbally redirect patient and agreeable to trying prn trazodone and zyprexa per [facility] MAK recommendation. pt medicated per aug. shortly after noted to be sleeping in bed resp even and unlabored. patient awoke at this time and rang call corado requesting monitor to be turned off. verbalized feeling better.
[2025-04-28 08:23] VITALS: BP 133/83; PULSE 82; RESP 18; O2SAT 99
[2025-04-28 12:40] VITALS: BP 140/91; PULSE 83; TEMP 36.7; O2SAT 99
[2025-04-28 14:55] VITALS: BMI 74.7
--- NOTE | 2025-04-28 15:08 | PC.ADMIT ---
[place] was admitted to at 12:54 from the ED on 12a for treatment of agoraphobia. Prior to admission she reported ?debilitating agoraphobia?, increased anxiety, and not eating or drinking. She is awake, alert, oriented to person place and time, and cooperative with the admission process. Her mood is anxious, and a tense affect is present. She denies all hallucinations, does not appear internally preoccupied or responding to internal stimuli, displays no paranoia or suspiciousness, delusional thinking, impaired concentration or disturbed thought process. She denies thoughts to harm herself or others. Her appetite has been diminished with unintentional weight loss. She sleeps with medication, has no recent substance use, a tox screen completely negative, no acute medical issues, and is placed on 15 minute safety checks.
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
== END 2025-04-28 18:15 | disposition home or self-care (01) | DRG 756 ==
LOC: HO.ED 04-27 11:09 → HO.PADLT16 04-28 11:08
PROVIDERS: Physician Assistant; Admitting Provider Psychiatry & Neurology Psychiatry; Emergency Provider Emergency Medicine; PCP Internal Medicine; Visit Provider Psychiatry & Neurology Psychiatry
DX: F41.9 Anxiety disorder, unspecified (principal); Z68.45 Body mass index [BMI] 70 or greater, adult; E66.01 Morbid (severe) obesity due to excess calories; F40.00 Agoraphobia, unspecified; Z87.891 Personal history of nicotine dependence; Z79.899 Other long term (current) drug therapy
CPT/HCPCS: 36415; 80053; 80307; 81001; 84443; 85025; 99285; S9485

== ENCOUNTER → 2025-04-28 11:00 | Outpatient (BNV) | payer OTHER, SELFPAY | PROVIDERS: Admitting Provider Psychiatry & Neurology Psychiatry; Emergency Provider Emergency Medicine; PCP Internal Medicine; Visit Provider Psychiatry & Neurology Psychiatry | DX: F40.00 Agoraphobia, unspecified (principal); F43.11 Post-traumatic stress disorder, acute; F41.9 Anxiety disorder, unspecified | CPT/HCPCS: 90792; 99499 ==

== ENCOUNTER 2025-05-09 14:03 | Outpatient (AMB) | payer OTHER, SELFPAY ==
--- NOTE | 2025-05-09 14:04 | MHC.PC.OV ---
Intake Visit Reasons: telehealth ?light headaches Intake Note: Telehealth visit. Allergies sucralose (From Splenda (sucralose)) Adverse Reaction (Mild, Verified 05/09/25 14:06) Headache xylitol Adverse Reaction (Mild, Verified 05/09/25 14:06) Headache hydroxyzine Adverse Reaction (Verified 04/24/25 16:44) Agitated Tobacco use date assessed: 05/09/25 Dental Screening Dental Screen Date: 05/09/25 Did you have a dental visit in the last 12 months?: No Did you have a dental problem in the last 6 months where you did not have access to dental care?: No Was dental information given to patient?: Patient declined HPI telehealth ?light headaches HPI Details Patient presents for the follow-up of telehealth visit. She had episode of depression and anxiety not eating for 3 days 2 weeks ago. Patient became weak and lightheaded and was evaluated in the ER on April 26 and referred Psychiatry for anxiety and depression treatment. Patient reports feeling better but still has episodes of fatigue improved after eating peanut butter on drinking electrolyte solution. FOR[facility]LY [facility], [facility] Medical History (Updated 05/09/25 @ 14:31 by Yara Peña MD) Morbid obesity Agoraphobia Anxiety Annual physical exam Surgical History No pertinent past surgical history Family History Father Unknown family medical history Stroke Myocardial infarction Mother No problems noted. Brother No problems noted. Brother No problems noted. Social History Household Members: Spouse Housing: Apartment Do you presently have visiting nurse or other home services: No Alcohol intake: former Patient Tobacco Use Status: Former Tobacco user Tobacco use type: Cigarette Cigarette Packs Per Day: 1 Cigarettes Per Day: 20.0 Years Smoked: 20 e-Cigarette/Vaping Use: Former Use Second Hand Smoke Exposure: No Substance Use Type: Marijuana service: No Current occupational status: unemployed Cognitive needs: No Hearing needs: No Vision needs: No Questionnaire PHQ-9 Over the last 2 weeks, how often have you been bothered by any of the following problems? 1. Little interest or pleasure in doing things: more than half the days 2. Feeling down, depressed, or hopeless: more than half the days 3. Trouble falling or staying asleep, or sleeping too much: not at all 4. Feeling tired or having little energy: nearly every day 5. Poor appetite or overeating: nearly every day 6. Feeling bad about yourself - or that you are a failure or have let yourself or your family down: more than half the days 7. Trouble concentrating on things, such as reading the newspaper or watching television: several days 8. Moving or speaking so slowly that other people could have noticed. Or the opposite - being so fidgety or restless that you have been moving around a lot more than usual: several days 9. Thoughts that you would be better off or of hurting yourself in some way: more than half the days Total score: 16 Depression Screening Interpretation: Positive (Established with Psychiatry and counselor) Depression Screening Follow-up: Existing condition and In treatment Depression Screening Done: Yes 16288 - PHQ-9 Billing: Yes Source: Developed by Drs. Rasheed Sarabia, Stefani Gaona, Cleve [address] and colleagues, with an educational nahid from [employer]. Thrive Questionnaire Date Thrive assessed: 05/09/25 I am a: Patient What is your living situation today?: I have a steady place to live Within the past 12 months, did the food you bought not last and you didn't have the money to get more?: Often true Within the past 12 months, did you worry whether your food would run out before you got money to buy more?: Often true Do you have trouble paying for medicines?: No Do you have trouble getting transportation to medical appointments?: No Do you have trouble paying your heating and electricity bill?: No Do you have trouble taking care of your child, family member or friend?: No Do you have trouble with day-to-day activities such as bathing, preparing meals, shopping, managing finances, etc.?: No Are you currently unemployed and looking for a job?: No Are you interested in more education?: No Please select the resources that you would like help with: Transportation THRIVE Score: 2 AUDIT C Alcohol Use Questionnaire (AUDIT-C) 1. How often do you have a drink containing alcohol?: Never 3. How often do you have six or more drinks on one occasion?: Never Total Score: 0 LEONARDO-7 AMB Questionnaire LEONARDO-7 Date LEONARDO - 7 assessed: 05/09/25 Feeling nervous, anxious, or on edge: 2 = More than half the days Not being able to stop or control worryin = Several days Worrying too much about different things: 2 = More than half the days Trouble relaxin = More than half the days Being so restless that it is hard to sit still: 1 = Several days Becoming easily annoyed or irritable: 3 = Nearly every day Feeling afraid as if something awful might happen: 2 = More than half the days Total LEONARDO-7 score (0-4 normal; 5-9 mild; 10-14 moderate; 15-21 severe): 13 Source: Developed by Drs. Rasheed Sarabia, Stefani Gaona, [address] and colleagues, with an educational nahid from [employer]. LEONARDO-7 Assessment Billing LEONARDO-7 Assessment Tool: LEONARDO-7 Assessment 41113 Review of Systems Const All systems reviewed & are unremarkable except as noted in HPI and below ENT Reports no additional complaints Card Reports no additional complaints Resp Reports no additional complaints GI Reports no additional complaints Reports no additional complaints Physical exam (Primary Care) Tobacco/Smoking Status: Tobacco use Status Tobacco use date assessed 05/09/25 05/09/25 14:08 Patient Tobacco Use Status Former Tobacco user 05/09/25 14:05 Tobacco use type Cigarette 05/09/25 14:05 e-Cigarette/Vaping Use Former Use 05/09/25 14:05 PHQ-9: PHQ-9 Score PHQ-9: Total score 16 05/09/25 14:19 Depression Screening Interpretation: Positive (Established with Psychiatry and counselor) Depression Screening Follow-up: Existing condition and In treatment Thrive Assessment: Date of Thrive Assessment Date Thrive assessed 05/09/25 05/09/25 14:19 Telehealth Telehealth Telehealth Platform: Telephone Location of provider rendering services: practice address Location of patient: address on file Patient Identification confirmed using: Name, : Yes Telehealth method: voice only Patient verbally consented to treatment: Yes Patient verbally consented to billing insurance company: Yes Patient informed of any privacy concerns related to visit: Yes Minutes spent on Phone/Video with Pt.: 15 Coding Level of Care Code Tele Est Pt Level 3 (66909) Diagnoses Anxiety F41.9 Morbid obesity E66.01 Additional Codes LEONARDO-7 Assessment Billing - LEONARDO-7 Assessment Tool: LEONARDO-7 Assessment 46712 ([id number]) PHQ-9 - 16821 - PHQ-9 Billing: Yes ([id number]) Assessment & Plan Assessment & Plan (1) Anxiety: Comment: f/u psychiatry Code(s): F41.9 - Anxiety disorder, unspecified Category: Medical Plan: Follow-up with psychiatry and a counselor (2) Morbid obesity: Comment: BMI 74 04/2025 Code(s): E66.01 - Morbid (severe) obesity due to excess calories Category: Medical Plan: Decreasing caloric intake increasing physical activity weight loss discussed with the patient
== END 2025-05-09 14:32 | disposition home or self-care (01) ==
PROVIDERS: PCP Internal Medicine; Visit Provider Internal Medicine
DX: F41.9 Anxiety disorder, unspecified (principal); E66.01 Morbid (severe) obesity due to excess calories

== ENCOUNTER → 2025-05-09 14:03 | Outpatient (BNVA) | payer OTHER, SELFPAY | PROVIDERS: PCP Internal Medicine; Visit Provider Internal Medicine | DX: E66.01 Morbid (severe) obesity due to excess calories (principal); F32.A Depression, unspecified; F41.9 Anxiety disorder, unspecified | CPT/HCPCS: 96127 ==